=== PATIENT | male | born 1965 | race Caucasian/White ===

== ENCOUNTER 2020-12-02 00:04 | Inpatient (IN) | payer MEDICARE, MEDICAID ==
[~2020-12-02] VITALS: Ht 175.3 cm; Wt 80.5 kg
--- NOTE | 2020-12-02 00:20 | NUR ---
PT ARRIVED VIA [facility] TO ROOM 39. PT A&OX4, IN RESPIRATORY DISTRESS, AND REMAINS ON O2 NC 4LPM, AND FACEMASK O2 AT 15LPM FOR TRANSPORT, TRANSPORT DOES NOT HAVE HIFLO SYSTEM. PT CALM AND COOPERATIVE, AND ADMITTED TO ER. PLACED ON CR MONITOR, AND RT TO BEDSIDE TO START HIFLO O2 VIA NC AT 55L AND 100%. PT HAVING TACHYPNEA BUT SAYS HE FEELS ALRIGHT AND COMFORTABLE.
--- NOTE | 2020-12-02 00:21 | NUR ---
PT HAS PIV BILATERAL TO AC'S. BOTH 18G AND FLUSHED EASILY, AND NO REDNESS OR SWELLING NOTED. MD TO SEE PT, AND ALL PAPERWORK TO PHYSICIAN.
--- NOTE | 2020-12-02 00:26 | NUR ---
PTS NISHANT CALLED FOR AN UPDATE TO PTS STATUS. PT GAVE PERMISSION TO GIVE UPDATE TO NISHANT AND TO HIS DAUGHTER WHO MAY ALSO CALL. MD TO BEDSIDE TO [facility].
--- NOTE | 2020-12-02 01:01 | NUR ---
PTS DAUGHTER, NIGEL, CALLED FOR AN UPDATE AND TO GIVE ANY MORE INFORMATION THAT WE MIGHT NEED IN REGARDS TO MEDICATIONS. PT IS AWARE AND GAVE PERMISSION TO GIVE THE INFORMATION TO THE DAUGHTER.
--- NOTE | 2020-12-02 01:12 | NUR ---
BEDSIDE REPORT FROM DANIEL RN
[2020-12-02] MEDS ORDERED: CLOP75TA PO (01:57)
[2020-12-02] MEDS ORDERED: MONT10TA17 PO (01:57)
[2020-12-02] MEDS ORDERED: ASPI81TA45 PO (01:57)
[2020-12-02] MEDS ORDERED: FLUT9.9S NS (01:57)
[2020-12-02] MEDS ORDERED: ACET325T14 PO (01:57)
[2020-12-02] MEDS ORDERED: CALC1TAB26 PO (01:57)
[2020-12-02] MEDS ORDERED: GABA300C PO (01:57)
[2020-12-02] MEDS ORDERED: MELA10TA PO (01:57)
[2020-12-02] MEDS ORDERED: TERA2CAP3 PO (01:57)
[2020-12-02] MEDS ORDERED: LEVO125T PO (01:57)
[2020-12-02] MEDS ORDERED: LISI40TA9 PO (01:57)
[2020-12-02] MEDS ORDERED: TRIA60LO9 TP (01:57)
--- NOTE | 2020-12-02 01:58 | NUR ---
[facility] AT BEDSIDE
--- NOTE | 2020-12-02 02:23 | NUR ---
REPORT GIVEN TO ANDREAS CAMERON ON CARD TELE.
[2020-12-02] MEDS ORDERED: CEFTRIAXONE 1,000 MG in DEXTROSE 5% 50 ML IVPB SCH (03:00)
[2020-12-02] MEDS ORDERED: ONDANSETRON 2MG/ML, 2ML IVPush PRN (03:00)
[2020-12-02] MEDS ORDERED: LABETALOL 5MG/ML, 20ML IVPush PRN (03:00)
[2020-12-02] MEDS ORDERED: ENOXAPARIN 30 MG/0.3 ML SQ SCH (03:00)
[2020-12-02 03:08] VITALS: BP 137/92
[2020-12-02] MEDS: ENOXAPARIN 30 MG/0.3 ML SQ SCH ×2 (06:03→17:40)
[2020-12-02 06:30] LABS: HCT (SEDRATE) 41.6 % (39.2-51.8)
[2020-12-02 06:54] LABS: FREE T4 (FREE THYROXINE) 1.34 ng/dL (0.76-1.46)
[2020-12-02 08:00] VITALS: BP 112/70
[2020-12-02] MEDS: CHOLECALCIFEROL 5,000u TAB PO SCH (08:36)
[2020-12-02] MEDS: THIAMINE 100MG TABLET PO SCH (08:36)
[2020-12-02] MEDS: DOXYCYCLINE 100MG TABLET PO SCH ×2 (08:36→21:07)
[2020-12-02] MEDS: DEXAMETHASONE 4 MG/ML, 1ML IVPush SCH (08:36)
[2020-12-02] MEDS: ASCORBIC ACID 500 MG TABLET PO SCH ×2 (08:36→17:40)
[2020-12-02] MEDS ORDERED: CEFTRIAXONE 1,000 MG in DEXTROSE 5% 50 ML IVPB ONE (09:00)
[2020-12-02] MEDS: ASPIRIN 81 MG TABLET EC PO SCH (09:00)
[2020-12-02 09:57] VITALS: BP 113/72
[2020-12-02 13:29] VITALS: BP 126/78
[2020-12-02 15:08] LABS: ALANINE AMINOTRANSFERASE 20 U/L (12-78); ALBUMIN 2.1 g/dL (3.4-5.0); ANION GAP 7 mmol/L (5-15); CALCIUM 8.4 mg/dL (8.5-10.1); CHLORIDE 112 mmol/L (98-107)
[2020-12-02 15:10] LABS: ALKALINE PHOSPHATASE 50 U/L (45-117); BILIRUBIN,TOTAL 0.7 mg/dL (0.2-1.0); CREATININE 0.85 mg/dL (0.7-1.3); TOTAL PROTEIN 7.1 g/dL (6.4-8.2)
[2020-12-02] MEDS: ZINC SULFATE 220 MG CAPSULE PO SCH (15:20)
[2020-12-02] MEDS: LISINOPRIL 40 MG TABLET PO SCH (15:20)
[2020-12-02] MEDS: LEVOTHYROXINE 125 MCG TABLET PO SCH (15:20)
[2020-12-02] MEDS ORDERED: REMDESIVIR 200 MG in SODIUM CHLORIDE 0.9% 250 ML IVPB ONE (16:00)
[2020-12-02 20:01] VITALS: BP 99/64
[2020-12-03 02:47] VITALS: BP 117/72
[2020-12-03 05:40] LABS: BASOPHILS % (AUTO) 1 % (0-1); EOSINOPHILS % (AUTO) 0 % (1-7); LYMPHOCYTES % (AUTO) 4 % (22-44); MEAN CORPUSCULAR HEMOGLOBIN 30.5 pg (27.5-34.5); MEAN CORPUSCULAR HGB CONC 33.8 g/dL (33.2-36.2); MONOCYTES % (AUTO) 6 % (2-9); NEUTROPHILS % (AUTO) 90 % (42-75); PLATELET COUNT 563 x10^3/uL (130-400); RED BLOOD COUNT 4.57 x10^6/uL (4.38-5.82); RED CELL DISTRIBUTION WIDTH 13.4 % (9.4-14.8)
[2020-12-03 05:46] LABS: ALBUMIN 1.9 g/dL (3.4-5.0); ANION GAP 7 mmol/L (5-15); CALCIUM 8.4 mg/dL (8.5-10.1); CHLORIDE 115 mmol/L (98-107)
[2020-12-03 05:49] LABS: ALANINE AMINOTRANSFERASE 24 U/L (12-78); ALKALINE PHOSPHATASE 47 U/L (45-117); BILIRUBIN,TOTAL 0.6 mg/dL (0.2-1.0); CREATININE 0.79 mg/dL (0.7-1.3); TOTAL PROTEIN 6.4 g/dL (6.4-8.2)
[2020-12-03] MEDS: CEFTRIAXONE 2,000 MG in DEXTROSE 5% 50 ML IVPB SCH (06:01)
[2020-12-03] MEDS: ENOXAPARIN 30 MG/0.3 ML SQ SCH ×2 (06:02→17:55)
[2020-12-03] MEDS: LEVOTHYROXINE 125 MCG TABLET PO SCH (06:07)
[2020-12-03 08:45] VITALS: BP 137/84
[2020-12-03] MEDS: ZINC SULFATE 220 MG CAPSULE PO SCH (09:00)
[2020-12-03] MEDS: THIAMINE 100MG TABLET PO SCH (09:51)
[2020-12-03] MEDS: DEXAMETHASONE 4 MG/ML, 1ML IVPush SCH (09:51)
[2020-12-03] MEDS: ASPIRIN 81 MG TABLET EC PO SCH (09:51)
[2020-12-03] MEDS: CHOLECALCIFEROL 5,000u TAB PO SCH (09:51)
[2020-12-03] MEDS: DOXYCYCLINE 100MG TABLET PO SCH ×2 (09:51→21:26)
[2020-12-03] MEDS: CLOPIDOGREL 75 MG TABLET PO SCH (09:52)
[2020-12-03] MEDS: ASCORBIC ACID 500 MG TABLET PO SCH ×2 (09:52→17:55)
[2020-12-03] MEDS: LISINOPRIL 40 MG TABLET PO SCH (09:52)
[2020-12-03 14:10] VITALS: BP 128/77
[2020-12-03] MEDS: REMDESIVIR 100 MG in SODIUM CHLORIDE 0.9% 250 ML IVPB SCH (16:01)
[2020-12-03 19:53] VITALS: BP 148/83
[2020-12-03] MEDS: GUAIFENESIN ER 600 MG TABLET PO SCH (21:26)
[2020-12-03] MEDS: ACETAMINOPHEN 325 MG TABLET PO PRN (21:40)
[2020-12-04 02:09] VITALS: BP 146/87
[2020-12-04] MEDS: LEVOTHYROXINE 125 MCG TABLET PO SCH (05:32)
[2020-12-04] MEDS: ENOXAPARIN 30 MG/0.3 ML SQ SCH (05:33)
[2020-12-04 05:46] LABS: BASOPHILS % (AUTO) 0 % (0-1); EOSINOPHILS % (AUTO) 0 % (1-7); LYMPHOCYTES % (AUTO) 6 % (22-44); MEAN CORPUSCULAR HEMOGLOBIN 30.8 pg (27.5-34.5); MEAN CORPUSCULAR HGB CONC 33.9 g/dL (33.2-36.2); MEAN PLATELET VOLUME 7.9 fL (7.4-10.4); MONOCYTES % (AUTO) 4 % (2-9); NEUTROPHILS % (AUTO) 90 % (42-75); PLATELET COUNT 596 x10^3/uL (130-400); RED BLOOD COUNT 4.74 x10^6/uL (4.38-5.82); RED CELL DISTRIBUTION WIDTH 13.3 % (9.4-14.8)
[2020-12-04 05:57] LABS: ANION GAP 6 mmol/L (5-15); CALCIUM 8.6 mg/dL (8.5-10.1); CHLORIDE 116 mmol/L (98-107)
[2020-12-04 06:02] LABS: ALANINE AMINOTRANSFERASE 24 U/L (12-78); ALKALINE PHOSPHATASE 50 U/L (45-117); BILIRUBIN,TOTAL 0.8 mg/dL (0.2-1.0); CREATININE 0.71 mg/dL (0.7-1.3); TOTAL PROTEIN 6.5 g/dL (6.4-8.2)
[2020-12-04] MEDS: ASPIRIN 81 MG TABLET EC PO SCH (08:48)
[2020-12-04] MEDS: ASCORBIC ACID 500 MG TABLET PO SCH ×2 (08:48→17:02)
[2020-12-04] MEDS: DEXAMETHASONE 4 MG/ML, 1ML IVPush SCH (08:49)
[2020-12-04] MEDS: CHOLECALCIFEROL 5,000u TAB PO SCH (08:49)
[2020-12-04] MEDS: THIAMINE 100MG TABLET PO SCH (08:49)
[2020-12-04] MEDS: GUAIFENESIN ER 600 MG TABLET PO SCH ×2 (08:49→20:58)
[2020-12-04] MEDS: ZINC SULFATE 220 MG CAPSULE PO SCH (08:49)
[2020-12-04] MEDS: CLOPIDOGREL 75 MG TABLET PO SCH (08:49)
[2020-12-04] MEDS: DOXYCYCLINE 100MG TABLET PO SCH ×2 (08:49→20:58)
[2020-12-04] MEDS: LISINOPRIL 40 MG TABLET PO SCH (08:53)
[2020-12-04 09:15] VITALS: BP 159/91
[2020-12-04] MEDS ORDERED: ENOXAPARIN 60 MG/0.6 ML SQ ONE (09:30)
[2020-12-04] MEDS ORDERED: POTASSIUM CHLORIDE 20 MEQ TAB.ER.PRT PO ONE (09:30)
[2020-12-04] MEDS: POTASSIUM CHLORIDE 20 MEQ TAB.ER.PRT PO SCH ×2 (12:00→17:02)
[2020-12-04] MEDS: FUROSEMIDE 40 MG/4 ML IV SCH ×2 (12:18→17:02)
[2020-12-04 13:09] VITALS: BP 134/82
[2020-12-04] MEDS: REMDESIVIR 100 MG in SODIUM CHLORIDE 0.9% 250 ML IVPB SCH (17:01)
[2020-12-04] MEDS: ACETAMINOPHEN 325 MG TABLET PO PRN ×2 (18:00→21:59)
[2020-12-04 19:01] VITALS: BP 117/74
[2020-12-04] MEDS: ENOXAPARIN 100 MG/ML SQ SCH (20:58)
[2020-12-05 00:31] VITALS: BP 121/77
[2020-12-05] MEDS: ACETAMINOPHEN 325 MG TABLET PO PRN ×5 (01:54→21:00)
[2020-12-05 05:34] LABS: ALBUMIN 2.2 g/dL (3.4-5.0); ANION GAP 10 mmol/L (5-15); CALCIUM 8.7 mg/dL (8.5-10.1); CHLORIDE 109 mmol/L (98-107)
[2020-12-05 05:38] LABS: ALANINE AMINOTRANSFERASE 25 U/L (12-78); ALKALINE PHOSPHATASE 53 U/L (45-117); BILIRUBIN,TOTAL 1.1 mg/dL (0.2-1.0); CREATININE 1.03 mg/dL (0.7-1.3); TOTAL PROTEIN 7.2 g/dL (6.4-8.2)
[2020-12-05] MEDS: LEVOTHYROXINE 125 MCG TABLET PO SCH (06:00)
[2020-12-05] MEDS: FUROSEMIDE 40 MG/4 ML IV SCH ×2 (06:22→16:58)
[2020-12-05 09:01] VITALS: BP 95/62
[2020-12-05] MEDS: GUAIFENESIN ER 600 MG TABLET PO SCH ×2 (09:11→21:00)
[2020-12-05] MEDS: DEXAMETHASONE 4 MG/ML, 1ML IVPush SCH ×2 (09:11→21:01)
[2020-12-05] MEDS: ASPIRIN 81 MG TABLET EC PO SCH (09:11)
[2020-12-05] MEDS: DOXYCYCLINE 100MG TABLET PO SCH ×2 (09:11→21:01)
[2020-12-05] MEDS: ASCORBIC ACID 500 MG TABLET PO SCH ×2 (09:12→16:58)
[2020-12-05] MEDS: CLOPIDOGREL 75 MG TABLET PO SCH (09:12)
[2020-12-05] MEDS: ENOXAPARIN 100 MG/ML SQ SCH ×2 (09:12→21:01)
[2020-12-05] MEDS: LISINOPRIL 40 MG TABLET PO SCH (09:12)
[2020-12-05] MEDS: CHOLECALCIFEROL 5,000u TAB PO SCH (09:12)
[2020-12-05] MEDS: THIAMINE 100MG TABLET PO SCH (09:12)
[2020-12-05] MEDS: POTASSIUM CHLORIDE 20 MEQ TAB.ER.PRT PO SCH ×3 (09:12→16:58)
[2020-12-05] MEDS: ZINC SULFATE 220 MG CAPSULE PO SCH (12:27)
[2020-12-05 13:22] VITALS: BP 113/74
[2020-12-05] MEDS: REMDESIVIR 100 MG in SODIUM CHLORIDE 0.9% 250 ML IVPB SCH (16:57)
[2020-12-05 18:27] VITALS: BP 96/61
[2020-12-05 23:16] VITALS: BP 107/70
[2020-12-06] MEDS: CEFTRIAXONE 2,000 MG in DEXTROSE 5% 50 ML IVPB SCH (06:07)
[2020-12-06] MEDS: ACETAMINOPHEN 325 MG TABLET PO PRN ×4 (06:07→20:07)
[2020-12-06] MEDS: FUROSEMIDE 40 MG/4 ML IV SCH ×2 (06:07→16:33)
[2020-12-06] MEDS: LEVOTHYROXINE 125 MCG TABLET PO SCH (06:08)
[2020-12-06 06:19] LABS: BASOPHILS % (AUTO) 0 % (0-1); EOSINOPHILS % (AUTO) 0 % (1-7); LYMPHOCYTES % (AUTO) 4 % (22-44); MEAN CORPUSCULAR HEMOGLOBIN 31.2 pg (27.5-34.5); MEAN CORPUSCULAR HGB CONC 34.2 g/dL (33.2-36.2); MEAN PLATELET VOLUME 8.1 fL (7.4-10.4); MONOCYTES % (AUTO) 2 % (2-9); NEUTROPHILS % (AUTO) 94 % (42-75); PLATELET COUNT 731 x10^3/uL (130-400); RED BLOOD COUNT 4.86 x10^6/uL (4.38-5.82); RED CELL DISTRIBUTION WIDTH 13.5 % (9.4-14.8)
[2020-12-06 06:28] LABS: CHLORIDE 109 mmol/L (98-107)
[2020-12-06 06:32] LABS: ANION GAP 8 mmol/L (5-15); CREATININE 0.86 mg/dL (0.7-1.3)
[2020-12-06 07:44] VITALS: BP 91/59
[2020-12-06] MEDS: LISINOPRIL 40 MG TABLET PO SCH (09:00)
[2020-12-06] MEDS: ENOXAPARIN 100 MG/ML SQ SCH ×2 (09:00→20:07)
[2020-12-06] MEDS: POTASSIUM CHLORIDE 20 MEQ TAB.ER.PRT PO SCH ×3 (09:18→16:33)
[2020-12-06] MEDS: ASPIRIN 81 MG TABLET EC PO SCH (09:19)
[2020-12-06] MEDS: CLOPIDOGREL 75 MG TABLET PO SCH (09:19)
[2020-12-06] MEDS: GUAIFENESIN ER 600 MG TABLET PO SCH ×2 (09:19→20:07)
[2020-12-06] MEDS: THIAMINE 100MG TABLET PO SCH (09:19)
[2020-12-06] MEDS: ASCORBIC ACID 500 MG TABLET PO SCH ×2 (09:19→16:33)
[2020-12-06] MEDS: CHOLECALCIFEROL 5,000u TAB PO SCH (09:19)
[2020-12-06] MEDS: DEXAMETHASONE 4 MG/ML, 1ML IVPush SCH ×2 (09:20→20:07)
[2020-12-06] MEDS: DOXYCYCLINE 100MG TABLET PO SCH ×2 (09:25→20:07)
[2020-12-06 10:20] LABS: CHLORIDE 108 mmol/L (98-107)
[2020-12-06 10:26] LABS: ALANINE AMINOTRANSFERASE 22 U/L (12-78); ALBUMIN 2.2 g/dL (3.4-5.0); ALKALINE PHOSPHATASE 49 U/L (45-117); ANION GAP 10 mmol/L (5-15); BILIRUBIN,TOTAL 0.4 mg/dL (0.2-1.0); CALCIUM 9.4 mg/dL (8.5-10.1); CREATININE 0.98 mg/dL (0.7-1.3); TOTAL PROTEIN 7.2 g/dL (6.4-8.2)
[2020-12-06] MEDS: ZINC SULFATE 220 MG CAPSULE PO SCH (11:15)
[2020-12-06 13:02] VITALS: BP 111/74
[2020-12-06] MEDS ORDERED: ASCORBIC ACID 250 MG TAB ONE (16:15)
[2020-12-06 16:30] VITALS: BP 103/66
[2020-12-06] MEDS: REMDESIVIR 100 MG in SODIUM CHLORIDE 0.9% 250 ML IVPB SCH (16:33)
[2020-12-06 19:05] VITALS: BP 99/52
[2020-12-07 00:16] VITALS: BP 98/55
[2020-12-07] MEDS: ACETAMINOPHEN 325 MG TABLET PO PRN ×4 (00:38→20:00)
[2020-12-07 04:51] LABS: BASOPHILS % (AUTO) 1 % (0-1); EOSINOPHILS % (AUTO) 0 % (1-7); LYMPHOCYTES % (AUTO) 4 % (22-44); MEAN CORPUSCULAR HEMOGLOBIN 30.1 pg (27.5-34.5); MEAN PLATELET VOLUME 8.1 fL (7.4-10.4); MONOCYTES % (AUTO) 1 % (2-9); NEUTROPHILS % (AUTO) 95 % (42-75); PLATELET COUNT 777 x10^3/uL (130-400); RED BLOOD COUNT 5.07 x10^6/uL (4.38-5.82); RED CELL DISTRIBUTION WIDTH 13.6 % (9.4-14.8)
[2020-12-07 05:00] LABS: ANION GAP 9 mmol/L (5-15); CALCIUM 9.2 mg/dL (8.5-10.1); CHLORIDE 108 mmol/L (98-107)
[2020-12-07 05:01] LABS: CREATININE 0.89 mg/dL (0.7-1.3)
[2020-12-07] MEDS: LEVOTHYROXINE 125 MCG TABLET PO SCH (05:55)
[2020-12-07] MEDS: CEFTRIAXONE 2,000 MG in DEXTROSE 5% 50 ML IVPB SCH (05:56)
[2020-12-07 07:35] VITALS: BP 109/61
[2020-12-07] MEDS: FUROSEMIDE 40 MG/4 ML IV SCH ×2 (08:49→18:08)
[2020-12-07] MEDS: DEXAMETHASONE 4 MG/ML, 1ML IVPush SCH ×2 (08:50→20:00)
[2020-12-07] MEDS: ENOXAPARIN 100 MG/ML SQ SCH (08:50)
[2020-12-07] MEDS: DOXYCYCLINE 100MG TABLET PO SCH ×2 (08:51→19:59)
[2020-12-07] MEDS: ASPIRIN 81 MG TABLET EC PO SCH (08:51)
[2020-12-07] MEDS: ASCORBIC ACID 500 MG TABLET PO SCH ×2 (08:51→18:08)
[2020-12-07] MEDS: THIAMINE 100MG TABLET PO SCH (08:51)
[2020-12-07] MEDS: CHOLECALCIFEROL 5,000u TAB PO SCH (08:51)
[2020-12-07] MEDS: LISINOPRIL 40 MG TABLET PO SCH (08:51)
[2020-12-07] MEDS: POTASSIUM CHLORIDE 20 MEQ TAB.ER.PRT PO SCH ×3 (08:51→18:08)
[2020-12-07] MEDS: CLOPIDOGREL 75 MG TABLET PO SCH (08:52)
[2020-12-07] MEDS: ZINC SULFATE 220 MG CAPSULE PO SCH (11:37)
[2020-12-07] MEDS: GUAIFENESIN ER 600 MG TABLET PO SCH ×2 (11:37→20:00)
[2020-12-07 12:21] VITALS: BP 104/60
[2020-12-07] MEDS: ENOXAPARIN 80 MG/0.8 ML SQ SCH (20:00)
[2020-12-07 20:03] VITALS: BP 97/52
[2020-12-08] MEDS: ACETAMINOPHEN 325 MG TABLET PO PRN ×3 (01:41→17:35)
[2020-12-08 01:43] VITALS: BP 108/66
[2020-12-08] MEDS: CEFTRIAXONE 2,000 MG in DEXTROSE 5% 50 ML IVPB SCH (06:11)
[2020-12-08] MEDS: LEVOTHYROXINE 125 MCG TABLET PO SCH (06:11)
[2020-12-08 08:00] VITALS: BP 110/67
[2020-12-08] MEDS: THIAMINE 100MG TABLET PO SCH (08:50)
[2020-12-08] MEDS: ENOXAPARIN 80 MG/0.8 ML SQ SCH ×2 (08:50→20:24)
[2020-12-08] MEDS: DOXYCYCLINE 100MG TABLET PO SCH ×2 (08:50→20:24)
[2020-12-08] MEDS: ASPIRIN 81 MG TABLET EC PO SCH (08:51)
[2020-12-08] MEDS: CLOPIDOGREL 75 MG TABLET PO SCH (08:51)
[2020-12-08] MEDS: FUROSEMIDE 40 MG/4 ML IV SCH ×2 (08:51→17:02)
[2020-12-08] MEDS: DEXAMETHASONE 4 MG/ML, 1ML IVPush SCH ×2 (08:51→20:24)
[2020-12-08] MEDS: CHOLECALCIFEROL 5,000u TAB PO SCH (08:51)
[2020-12-08] MEDS: ASCORBIC ACID 500 MG TABLET PO SCH ×2 (08:51→17:02)
[2020-12-08] MEDS: POTASSIUM CHLORIDE 20 MEQ TAB.ER.PRT PO SCH ×3 (08:51→17:02)
[2020-12-08] MEDS: LISINOPRIL 40 MG TABLET PO SCH (08:51)
[2020-12-08] MEDS: GUAIFENESIN ER 600 MG TABLET PO SCH ×2 (08:51→20:24)
[2020-12-08] MEDS: ZINC SULFATE 220 MG CAPSULE PO SCH (11:49)
[2020-12-08 14:00] VITALS: BP 101/57
[2020-12-08 15:06] LABS: TROPONIN I < 0.015 ng/mL (0.000-0.045)
[2020-12-08] MEDS ORDERED: FUROSEMIDE 20 MG/2 ML ONE (16:48)
[2020-12-08 20:00] VITALS: BP 95/56
[2020-12-08 20:31] LABS: TROPONIN I < 0.015 ng/mL (0.000-0.045)
[2020-12-08] MEDS: MELATONIN 5 MG TABLET PO SCH (23:45)
[2020-12-09] VITALS (8 sets, daily range): BP systolic 82–111; BP diastolic 46–67
[2020-12-09 04:51] LABS: BASOPHILS % (AUTO) 0 % (0-1); EOSINOPHILS % (AUTO) 0 % (1-7); LYMPHOCYTES % (AUTO) 2 % (22-44); MEAN CORPUSCULAR HEMOGLOBIN 30.6 pg (27.5-34.5); MEAN CORPUSCULAR HGB CONC 33.4 g/dL (33.2-36.2); MEAN PLATELET VOLUME 8.1 fL (7.4-10.4); MONOCYTES % (AUTO) 2 % (2-9); NEUTROPHILS % (AUTO) 96 % (42-75); PLATELET COUNT 782 x10^3/uL (130-400); RED BLOOD COUNT 5.22 x10^6/uL (4.38-5.82); RED CELL DISTRIBUTION WIDTH 13.6 % (9.4-14.8)
[2020-12-09 04:59] LABS: ANION GAP 10 mmol/L (5-15); CALCIUM 9.3 mg/dL (8.5-10.1); CHLORIDE 108 mmol/L (98-107)
[2020-12-09 05:02] LABS: CREATININE 1.01 mg/dL (0.7-1.3)
[2020-12-09] MEDS: CEFTRIAXONE 2,000 MG in DEXTROSE 5% 50 ML IVPB SCH (05:07)
[2020-12-09] MEDS: LEVOTHYROXINE 125 MCG TABLET PO SCH (05:10)
[2020-12-09] MEDS: FUROSEMIDE 40 MG/4 ML IV SCH ×2 (08:09→17:51)
[2020-12-09] MEDS: DEXAMETHASONE 4 MG/ML, 1ML IVPush SCH ×2 (08:09→22:01)
[2020-12-09] MEDS: CHOLECALCIFEROL 5,000u TAB PO SCH (08:10)
[2020-12-09] MEDS: ASCORBIC ACID 500 MG TABLET PO SCH ×2 (08:10→17:51)
[2020-12-09] MEDS: CLOPIDOGREL 75 MG TABLET PO SCH (08:10)
[2020-12-09] MEDS: ASPIRIN 81 MG TABLET EC PO SCH (08:11)
[2020-12-09] MEDS: POTASSIUM CHLORIDE 20 MEQ TAB.ER.PRT PO SCH ×3 (08:11→17:51)
[2020-12-09] MEDS: ACETAMINOPHEN 325 MG TABLET PO PRN ×2 (08:12→18:40)
[2020-12-09] MEDS: ENOXAPARIN 80 MG/0.8 ML SQ SCH ×2 (08:13→22:01)
[2020-12-09] MEDS: GUAIFENESIN ER 600 MG TABLET PO SCH ×2 (08:13→22:02)
[2020-12-09] MEDS: THIAMINE 100MG TABLET PO SCH (08:13)
[2020-12-09] MEDS: DOXYCYCLINE 100MG TABLET PO SCH ×2 (08:13→22:02)
[2020-12-09] MEDS: LISINOPRIL 40 MG TABLET PO SCH (08:14)
[2020-12-09] MEDS: ZINC SULFATE 220 MG CAPSULE PO SCH (12:44)
[2020-12-09] MEDS: MELATONIN 5 MG TABLET PO SCH (21:00)
[2020-12-10] VITALS (7 sets, daily range): BP systolic 83–113; BP diastolic 42–72
[2020-12-10] MEDS: LEVOTHYROXINE 125 MCG TABLET PO SCH (06:00)
[2020-12-10] MEDS: CEFTRIAXONE 2,000 MG in DEXTROSE 5% 50 ML IVPB SCH (06:14)
[2020-12-10] MEDS: ACETAMINOPHEN 325 MG TABLET PO PRN ×2 (06:15→16:15)
[2020-12-10] MEDS: GUAIFENESIN ER 600 MG TABLET PO SCH ×2 (08:36→20:14)
[2020-12-10] MEDS: CHOLECALCIFEROL 5,000u TAB PO SCH (08:36)
[2020-12-10] MEDS: CLOPIDOGREL 75 MG TABLET PO SCH (08:36)
[2020-12-10] MEDS: FUROSEMIDE 40 MG/4 ML IV SCH ×2 (08:36→17:29)
[2020-12-10] MEDS: DEXAMETHASONE 4 MG/ML, 1ML IVPush SCH ×2 (08:36→20:14)
[2020-12-10] MEDS: ENOXAPARIN 80 MG/0.8 ML SQ SCH (08:37)
[2020-12-10] MEDS: THIAMINE 100MG TABLET PO SCH (08:37)
[2020-12-10] MEDS: ASPIRIN 81 MG TABLET EC PO SCH (08:37)
[2020-12-10] MEDS: POTASSIUM CHLORIDE 20 MEQ TAB.ER.PRT PO SCH ×3 (08:37→17:28)
[2020-12-10] MEDS: DOXYCYCLINE 100MG TABLET PO SCH ×2 (08:37→20:15)
[2020-12-10] MEDS: ASCORBIC ACID 500 MG TABLET PO SCH ×2 (08:37→17:28)
[2020-12-10] MEDS: LISINOPRIL 40 MG TABLET PO SCH (08:51)
[2020-12-10] MEDS: ZINC SULFATE 220 MG CAPSULE PO SCH (11:01)
[2020-12-10] MEDS: MELATONIN 5 MG TABLET PO SCH (20:15)
[2020-12-10] MEDS: GABAPENTIN 300 MG CAPSULE PO PRN (20:16)
[2020-12-11] VITALS (27 sets, daily range): BP systolic 66–120; BP diastolic 42–89
[2020-12-11] MEDS: LEVOTHYROXINE 125 MCG TABLET PO SCH (06:24)
[2020-12-11] MEDS: CEFTRIAXONE 2,000 MG in DEXTROSE 5% 50 ML IVPB SCH (06:24)
[2020-12-11] MEDS: FUROSEMIDE 40 MG/4 ML IV SCH (06:26)
[2020-12-11] MEDS: GABAPENTIN 300 MG CAPSULE PO PRN (06:26)
[2020-12-11] MEDS: POTASSIUM CHLORIDE 20 MEQ TAB.ER.PRT PO SCH ×3 (06:29→17:17)
[2020-12-11] MEDS: ASCORBIC ACID 500 MG TABLET PO SCH ×2 (06:29→17:17)
[2020-12-11] MEDS: DEXAMETHASONE 4 MG/ML, 1ML IVPush SCH (08:41)
[2020-12-11] MEDS: THIAMINE 100MG TABLET PO SCH (08:42)
[2020-12-11] MEDS: CLOPIDOGREL 75 MG TABLET PO SCH (08:42)
[2020-12-11] MEDS: LISINOPRIL 40 MG TABLET PO SCH (08:42)
[2020-12-11] MEDS: DOXYCYCLINE 100MG TABLET PO SCH (08:42)
[2020-12-11] MEDS: GUAIFENESIN ER 600 MG TABLET PO SCH (08:42)
[2020-12-11] MEDS: ASPIRIN 81 MG TABLET EC PO SCH (08:42)
[2020-12-11] MEDS: CHOLECALCIFEROL 5,000u TAB PO SCH (08:42)
[2020-12-11] MEDS ORDERED: ENOXAPARIN 40 MG/0.4 ML SQ SCH (09:00)
[2020-12-11] MEDS ORDERED: PROPOFOL 100 ML IV PRN (11:10)
[2020-12-11] MEDS: PROPOFOL 100 ML IV PRN ×3 (11:10→21:51)
[2020-12-11] MEDS ORDERED: SODIUM CHLORIDE 0.9% 1,000ML IVBOLUS ONE (11:10)
[2020-12-11] MEDS ORDERED: PHARMACY MAY ADJ FOR RENAL FX MC SCH (11:30)
[2020-12-11] MEDS ORDERED: LIDOCAINE-MPF 1%, 2ML ENDO PRN (11:30)
[2020-12-11] MEDS: ZINC SULFATE 220 MG CAPSULE PO SCH (12:47)
[2020-12-11] MEDS ORDERED: OMNIPAQUE 350 MG/ML, 100ML BOTTLE ONE (14:01)
[2020-12-11] MEDS ORDERED: ENOXAPARIN 80 MG/0.8 ML SQ SCH (15:00)
[2020-12-11] MEDS: FENTANYL PF 100 MCG/2ML IVPush PRN ×3 (19:48→22:25)
[2020-12-11] MEDS: MELATONIN 5 MG TABLET PO SCH (19:49)
[2020-12-11] MEDS: NOREPINEPHRINE 8 MG in SODIUM CHLORIDE 0.9% 242 ML IV PRN (20:11)
[2020-12-11] MEDS ORDERED: MIDAZOLAM 1 MG/ML, 5ML ONE (20:20)
[2020-12-11] MEDS ORDERED: ETOMIDATE 20 MG/10 ML ONE (20:20)
[2020-12-11] MEDS ORDERED: PROPOFOL 10 MG/ML, 100ML IV ONE (20:20)
[2020-12-11] MEDS: GUAIFENESIN 100 MG/5 ML, 10ML UDC PO SCH (21:51)
[2020-12-11 22:43] LABS: INTERNATIONAL NORMALIZED RATIO 1.02 (0.93-1.1); PROTHROMBIN TIME 10.9 Seconds (9.6-11.5)
[2020-12-11] MEDS ORDERED: FENTANYL PF 1,000 MCG in SODIUM CHLORIDE 0.9% 80 ML IV PRN (23:00)
[2020-12-11] MEDS ORDERED: MIDAZOLAM 1 MG/ML, 2ML IVPush PRN (23:00)
[2020-12-11] MEDS: DOXYCYCLINE 100 MG in DEXTROSE 5% 250 ML IV SCH (23:09)
[2020-12-12] MEDS: GUAIFENESIN 100 MG/5 ML, 10ML UDC PO SCH ×6 (00:42→20:39)
[2020-12-12] MEDS: PROPOFOL 100 ML IV PRN (01:54)
[2020-12-12] MEDS: MIDAZOLAM HCL 50 MG in SODIUM CHLORIDE 0.9% 40 ML IV PRN ×3 (02:15→20:39)
[2020-12-12] MEDS: NOREPINEPHRINE 8 MG in SODIUM CHLORIDE 0.9% 242 ML IV PRN (02:15)
[2020-12-12] MEDS: FENTANYL PF 2,500 MCG in SODIUM CHLORIDE 0.9% 200 ML IV PRN (04:33)
[2020-12-12 05:10] LABS: MEAN CORPUSCULAR HEMOGLOBIN 30.2 pg (27.5-34.5); MEAN PLATELET VOLUME 8.7 fL (7.4-10.4); PLATELET COUNT 749 x10^3/uL (130-400); RED BLOOD COUNT 4.91 x10^6/uL (4.38-5.82); RED CELL DISTRIBUTION WIDTH 13.7 % (9.4-14.8)
[2020-12-12 05:21] LABS: ANION GAP 8 mmol/L (5-15); CALCIUM 8.6 mg/dL (8.5-10.1); CHLORIDE 102 mmol/L (98-107)
[2020-12-12] MEDS: LEVOTHYROXINE 125 MCG TABLET PO SCH (05:28)
[2020-12-12] MEDS: CEFTRIAXONE 2,000 MG in DEXTROSE 5% 50 ML IVPB SCH (05:29)
[2020-12-12] MEDS: NOREPINEPHRINE 32 MG in SODIUM CHLORIDE 0.9% 242 ML IV PRN ×2 (05:29→13:56)
[2020-12-12 05:43] LABS: METAMYELOCYTES# (MANUAL) 0.32 x10^3/uL (0-0); METAMYELOCYTES% (MANUAL) 1 % (0-1); MONOS#(MANUAL) 2.23 x10^3/uL (0.3-2.7); MONOS% (MANUAL) 7 % (2-9); SEG#(MANUAL) 29.35 x10^3/uL (1.8-6.8); SEGS% (MANUAL) 92 % (42-75)
[2020-12-12 05:44] LABS: <PLATELET ESTIMATE> INCREASED; <PLT MORPHOLOGY> NORMAL PLT MORPH; <RBC MORPHOLOGY> NORMAL
[2020-12-12] MEDS ORDERED: SODIUM CHLORIDE 0.9% 1,000 ML IV SCH (07:00)
[2020-12-12] MEDS ORDERED: SODIUM ZIRCONIUM CYCLOSILICATE 10 GM PO ONE (07:00)
[2020-12-12] MEDS: ACETAMINOPHEN 325 MG TABLET PO PRN (08:05)
[2020-12-12] MEDS: THIAMINE 100MG TABLET PO SCH (08:05)
[2020-12-12] MEDS: CLOPIDOGREL 75 MG TABLET PO SCH (08:05)
[2020-12-12] MEDS: ASPIRIN 81 MG TABLET EC PO SCH (08:05)
[2020-12-12] MEDS: CHOLECALCIFEROL 5,000u TAB PO SCH (08:05)
[2020-12-12] MEDS: DEXAMETHASONE 4 MG/ML, 1ML IVPush SCH (08:05)
[2020-12-12] MEDS: ASCORBIC ACID 500 MG TABLET PO SCH (08:05)
[2020-12-12] MEDS: LISINOPRIL 40 MG TABLET PO SCH (08:06)
[2020-12-12] MEDS ORDERED: SODIUM CHLORIDE 0.9% 1,000ML IVBOLUS ONE (08:45)
[2020-12-12 10:46] LABS: ABSOLUTE RETICS # 0.072 x10^6/uL (0.5-1.5); RED BLOOD COUNT 4.81 x10^6/uL (4.38-5.82); RETICULOCYTE COUNT % 1.5 % (0.5-1.5)
[2020-12-12] MEDS: SODIUM BICARB 8.4%,50ML SYR. 75 MEQ in SODIUM CHLORIDE 0.45% 1,000 ML IV SCH ×2 (12:11→22:09)
[2020-12-12] MEDS: DOXYCYCLINE 100 MG in DEXTROSE 5% 250 ML IV SCH ×2 (12:12→23:58)
[2020-12-12] MEDS: PANTOPRAZOLE 40 MG IV IVPush SCH (12:14)
[2020-12-12] MEDS: MEROPENEM 1 GM in SODIUM CHLORIDE 0.9% 100 ML IV SCH ×2 (12:14→23:25)
[2020-12-12 14:33] LABS: POTASSIUM,URINE RANDOM 62 mmol/L; SODIUM,URINE RANDOM 8 mmol/L
[2020-12-12 14:34] LABS: CHLORIDE,URINE RANDOM < 10 mmol/L
[2020-12-12 15:43] LABS: MICROSCOPIC INDICATED
[2020-12-12] MEDS: MELATONIN 5 MG TABLET PO SCH (20:39)
[2020-12-13] MEDS: PANTOPRAZOLE 40 MG IV IVPush SCH ×3 (00:02→23:02)
[2020-12-13] MEDS: GUAIFENESIN 100 MG/5 ML, 10ML UDC PO SCH ×3 (01:09→08:25)
[2020-12-13] MEDS: NOREPINEPHRINE 32 MG in SODIUM CHLORIDE 0.9% 242 ML IV PRN (02:50)
[2020-12-13] MEDS: FENTANYL PF 2,500 MCG in SODIUM CHLORIDE 0.9% 200 ML IV PRN ×2 (04:07→18:05)
[2020-12-13 04:38] LABS: BASOPHILS % (AUTO) 0 % (0-1); EOSINOPHILS % (AUTO) 0 % (1-7); LYMPHOCYTES % (AUTO) 4 % (22-44); MEAN CORPUSCULAR HGB CONC 32.7 g/dL (33.2-36.2); MEAN PLATELET VOLUME 8.1 fL (7.4-10.4); MONOCYTES % (AUTO) 7 % (2-9); NEUTROPHILS % (AUTO) 89 % (42-75); PLATELET COUNT 563 x10^3/uL (130-400); RED BLOOD COUNT 4.32 x10^6/uL (4.38-5.82); RED CELL DISTRIBUTION WIDTH 13.4 % (9.4-14.8)
[2020-12-13 04:50] LABS: ALANINE AMINOTRANSFERASE 23 U/L (12-78); ALBUMIN 1.7 g/dL (3.4-5.0); ANION GAP 4 mmol/L (5-15); CALCIUM 8.3 mg/dL (8.5-10.1); CHLORIDE 108 mmol/L (98-107); CREATININE 1.18 mg/dL (0.7-1.3)
[2020-12-13 04:53] LABS: ALKALINE PHOSPHATASE 39 U/L (45-117); BILIRUBIN,TOTAL 0.6 mg/dL (0.2-1.0); TOTAL PROTEIN 5.5 g/dL (6.4-8.2)
[2020-12-13] MEDS: LEVOTHYROXINE 125 MCG TABLET PO SCH (05:43)
[2020-12-13] MEDS: ASPIRIN 81 MG TABLET EC PO SCH (08:25)
[2020-12-13] MEDS: DEXAMETHASONE 4 MG/ML, 1ML IVPush SCH (08:25)
[2020-12-13] MEDS: SODIUM BICARB 8.4%,50ML SYR. 75 MEQ in SODIUM CHLORIDE 0.45% 1,000 ML IV SCH (08:26)
[2020-12-13] MEDS ORDERED: GUAIFENESIN 100 MG/5 ML, 10ML UDC PO PRN (09:00)
[2020-12-13] MEDS: MIDAZOLAM HCL 50 MG in SODIUM CHLORIDE 0.9% 40 ML IV PRN ×2 (10:07→20:21)
[2020-12-13] MEDS: SODIUM CHLORIDE 0.9% 1,000 ML IV SCH (10:39)
[2020-12-13] MEDS: MEROPENEM 1 GM in SODIUM CHLORIDE 0.9% 100 ML IV SCH ×2 (10:40→17:58)
[2020-12-13] MEDS: DOXYCYCLINE 100 MG in DEXTROSE 5% 250 ML IV SCH ×2 (11:45→23:02)
[2020-12-13] MEDS ORDERED: LIDOCAINE 1%, 10ML ONE (16:09)
[2020-12-13] MEDS: NOREPINEPHRINE 32 MG in SODIUM CHLORIDE 0.9% 218 ML IV PRN (18:04)
[2020-12-13] MEDS: MELATONIN 5 MG TABLET PO SCH (23:02)
[2020-12-14] MEDS: SODIUM CHLORIDE 0.9% 1,000 ML IV SCH ×2 (01:38→17:49)
[2020-12-14] MEDS: MEROPENEM 1 GM in SODIUM CHLORIDE 0.9% 100 ML IV SCH ×3 (01:39→17:49)
[2020-12-14 04:55] LABS: BASOPHILS % (AUTO) 1 % (0-1); EOSINOPHILS % (AUTO) 0 % (1-7); LYMPHOCYTES % (AUTO) 5 % (22-44); MEAN CORPUSCULAR HEMOGLOBIN 30.5 pg (27.5-34.5); MEAN CORPUSCULAR HGB CONC 33.4 g/dL (33.2-36.2); MEAN PLATELET VOLUME 8.1 fL (7.4-10.4); MONOCYTES % (AUTO) 6 % (2-9); NEUTROPHILS % (AUTO) 88 % (42-75); PLATELET COUNT 409 x10^3/uL (130-400); RED BLOOD COUNT 3.74 x10^6/uL (4.38-5.82); RED CELL DISTRIBUTION WIDTH 13.2 % (9.4-14.8)
[2020-12-14 05:05] LABS: ALBUMIN 1.7 g/dL (3.4-5.0); ANION GAP 3 mmol/L (5-15); CHLORIDE 105 mmol/L (98-107)
[2020-12-14 05:11] LABS: ALANINE AMINOTRANSFERASE 18 U/L (12-78); ALKALINE PHOSPHATASE 32 U/L (45-117); BILIRUBIN,TOTAL 0.6 mg/dL (0.2-1.0); CALCIUM 8.3 mg/dL (8.5-10.1); CREATININE 0.67 mg/dL (0.7-1.3); TOTAL PROTEIN 5.3 g/dL (6.4-8.2); TRIGLYCERIDES 159 mg/dL (50-200)
[2020-12-14] MEDS: MIDAZOLAM HCL 50 MG in SODIUM CHLORIDE 0.9% 40 ML IV PRN ×2 (06:23→17:49)
[2020-12-14] MEDS: LEVOTHYROXINE 125 MCG TABLET PO SCH (06:24)
[2020-12-14] MEDS: ASPIRIN 81 MG TABLET EC PO SCH (07:33)
[2020-12-14] MEDS: DEXAMETHASONE 4 MG/ML, 1ML IVPush SCH (07:33)
[2020-12-14] MEDS: DOXYCYCLINE 100 MG in DEXTROSE 5% 250 ML IV SCH ×2 (11:16→22:46)
[2020-12-14] MEDS: PANTOPRAZOLE 40 MG IV IVPush SCH ×2 (11:16→22:47)
[2020-12-14] MEDS: ENOXAPARIN 60 MG/0.6 ML SQ SCH ×2 (11:17→22:46)
[2020-12-14] MEDS: FENTANYL PF 2,500 MCG in SODIUM CHLORIDE 0.9% 200 ML IV PRN (13:36)
--- NOTE | 2020-12-14 14:01 | NUR ---
Tube Feeds: Vital AF: goal: 60 ml/hr on propofol, 70 ml/hr off propofol Addendum: 12/14/20 at [address] Amended: Links added.
[2020-12-14] MEDS: MELATONIN 5 MG TABLET PO SCH (22:46)
[2020-12-15] MEDS: MEROPENEM 1 GM in SODIUM CHLORIDE 0.9% 100 ML IV SCH ×3 (02:10→18:09)
[2020-12-15 04:21] LABS: MEAN CORPUSCULAR HEMOGLOBIN 30.8 pg (27.5-34.5); MEAN CORPUSCULAR HGB CONC 33.6 g/dL (33.2-36.2); MEAN PLATELET VOLUME 7.8 fL (7.4-10.4); PLATELET COUNT 365 x10^3/uL (130-400); RED BLOOD COUNT 3.23 x10^6/uL (4.38-5.82); RED CELL DISTRIBUTION WIDTH 13.2 % (9.4-14.8)
[2020-12-15 04:33] LABS: ALANINE AMINOTRANSFERASE 17 U/L (12-78); ALBUMIN 1.5 g/dL (3.4-5.0); CALCIUM 8.1 mg/dL (8.5-10.1); CHLORIDE 105 mmol/L (98-107); CREATININE 0.54 mg/dL (0.7-1.3)
[2020-12-15 04:35] LABS: ALKALINE PHOSPHATASE 30 U/L (45-117); BILIRUBIN,TOTAL 0.3 mg/dL (0.2-1.0); TOTAL PROTEIN 4.7 g/dL (6.4-8.2)
[2020-12-15 05:16] LABS: ANION GAP 5 mmol/L (5-15)
[2020-12-15] MEDS: SODIUM CHLORIDE 0.9% 1,000 ML IV SCH ×2 (05:33→10:17)
[2020-12-15] MEDS: LEVOTHYROXINE 125 MCG TABLET PO SCH (05:34)
[2020-12-15 05:56] LABS: <PLATELET ESTIMATE> ADEQUATE; <PLT MORPHOLOGY> NORMAL PLT MORPH; <RBC MORPHOLOGY> NORMAL; LYMPH#(MANUAL) 0.78 x10^3/uL (1-3.4); LYMPHS% (MANUAL) 5 % (22-44); METAMYELOCYTES# (MANUAL) 0.16 x10^3/uL (0-0); METAMYELOCYTES% (MANUAL) 1 % (0-1); MONOS#(MANUAL) 0.47 x10^3/uL (0.3-2.7); MONOS% (MANUAL) 3 % (2-9); SEGS% (MANUAL) 91 % (42-75)
[2020-12-15] MEDS: MIDAZOLAM HCL 50 MG in SODIUM CHLORIDE 0.9% 40 ML IV PRN ×3 (06:06→19:23)
[2020-12-15] MEDS: SENNA 176 MG/5 ML ORAL SOL NG SCH (08:09)
[2020-12-15] MEDS: DEXAMETHASONE 4 MG/ML, 1ML IVPush SCH (08:09)
[2020-12-15] MEDS: ASPIRIN 81 MG TABLET EC PO SCH (08:09)
[2020-12-15 08:57] LABS: CHLORIDE,URINE RANDOM 90 mmol/L; POTASSIUM,URINE RANDOM 34 mmol/L; SODIUM,URINE RANDOM 83 mmol/L
[2020-12-15 09:02] LABS: CREATININE,URINE RANDOM 90.5 mg/dL
[2020-12-15 09:18] LABS: MICROSCOPIC NOT IND
[2020-12-15] MEDS ORDERED: ENOXAPARIN 60 MG/0.6 ML SQ SCH (09:30)
[2020-12-15] MEDS: POLYETHYLENE GLYCOL 17 GM PACKET PO SCH (10:35)
[2020-12-15] MEDS: PANTOPRAZOLE 40 MG IV IVPush SCH ×2 (11:09→22:53)
[2020-12-15] MEDS: DOXYCYCLINE 100 MG in DEXTROSE 5% 250 ML IV SCH ×2 (11:09→22:53)
[2020-12-15 14:26] LABS: BASOPHILS % (AUTO) 0 % (0-1); EOSINOPHILS % (AUTO) 0 % (1-7); LYMPHOCYTES % (AUTO) 5 % (22-44); MEAN CORPUSCULAR HEMOGLOBIN 30.5 pg (27.5-34.5); MEAN CORPUSCULAR HGB CONC 33.2 g/dL (33.2-36.2); MEAN PLATELET VOLUME 7.7 fL (7.4-10.4); MONOCYTES % (AUTO) 3 % (2-9); NEUTROPHILS % (AUTO) 92 % (42-75); PLATELET COUNT 368 x10^3/uL (130-400); RED BLOOD COUNT 3.07 x10^6/uL (4.38-5.82); RED CELL DISTRIBUTION WIDTH 13.2 % (9.4-14.8)
[2020-12-15] MEDS: FENTANYL PF 2,500 MCG in SODIUM CHLORIDE 0.9% 200 ML IV PRN (16:50)
[2020-12-15] MEDS: MELATONIN 5 MG TABLET PO SCH (22:53)
[2020-12-16] MEDS: MEROPENEM 1 GM in SODIUM CHLORIDE 0.9% 100 ML IV SCH ×3 (02:37→18:07)
[2020-12-16] MEDS: SODIUM CHLORIDE 0.9% 1,000 ML IV SCH (02:41)
[2020-12-16] MEDS: MIDAZOLAM HCL 50 MG in SODIUM CHLORIDE 0.9% 40 ML IV PRN ×3 (03:31→20:55)
[2020-12-16 05:52] LABS: BASOPHILS % (AUTO) 0 % (0-1); EOSINOPHILS % (AUTO) 1 % (1-7); LYMPHOCYTES % (AUTO) 11 % (22-44); MEAN CORPUSCULAR HEMOGLOBIN 30.7 pg (27.5-34.5); MEAN CORPUSCULAR HGB CONC 33.6 g/dL (33.2-36.2); MEAN PLATELET VOLUME 7.9 fL (7.4-10.4); MONOCYTES % (AUTO) 7 % (2-9); NEUTROPHILS % (AUTO) 82 % (42-75); PLATELET COUNT 388 x10^3/uL (130-400); RED BLOOD COUNT 3.19 x10^6/uL (4.38-5.82); RED CELL DISTRIBUTION WIDTH 13.3 % (9.4-14.8)
[2020-12-16 05:55] LABS: ANION GAP 3 mmol/L (5-15); CALCIUM 7.9 mg/dL (8.5-10.1); CHLORIDE 104 mmol/L (98-107); CREATININE 0.46 mg/dL (0.7-1.3)
[2020-12-16] MEDS: LEVOTHYROXINE 125 MCG TABLET PO SCH (05:55)
[2020-12-16] MEDS: DEXAMETHASONE 4 MG/ML, 1ML IVPush SCH (06:58)
[2020-12-16] MEDS: ENOXAPARIN 40 MG/0.4 ML SQ SCH (06:58)
[2020-12-16] MEDS: SENNA 176 MG/5 ML ORAL SOL NG SCH (06:59)
[2020-12-16] MEDS: POLYETHYLENE GLYCOL 17 GM PACKET PO SCH (06:59)
[2020-12-16] MEDS: FENTANYL PF 2,500 MCG in SODIUM CHLORIDE 0.9% 200 ML IV PRN (10:21)
[2020-12-16] MEDS: DOXYCYCLINE 100 MG in DEXTROSE 5% 250 ML IV SCH ×2 (10:32→23:31)
[2020-12-16] MEDS: PANTOPRAZOLE 40 MG IV IVPush SCH ×2 (10:53→23:30)
[2020-12-16] MEDS: MELATONIN 5 MG TABLET PO SCH (20:41)
[2020-12-17] MEDS: FENTANYL PF 2,500 MCG in SODIUM CHLORIDE 0.9% 200 ML IV PRN ×2 (01:54→17:43)
[2020-12-17] MEDS: MEROPENEM 1 GM in SODIUM CHLORIDE 0.9% 100 ML IV SCH ×3 (02:02→17:43)
[2020-12-17] MEDS: MIDAZOLAM HCL 50 MG in SODIUM CHLORIDE 0.9% 40 ML IV PRN ×3 (03:59→22:17)
[2020-12-17 04:41] LABS: BASOPHILS % (AUTO) 0 % (0-1); EOSINOPHILS % (AUTO) 1 % (1-7); LYMPHOCYTES % (AUTO) 13 % (22-44); MEAN CORPUSCULAR HEMOGLOBIN 30.8 pg (27.5-34.5); MEAN CORPUSCULAR HGB CONC 33.9 g/dL (33.2-36.2); MEAN PLATELET VOLUME 7.8 fL (7.4-10.4); MONOCYTES % (AUTO) 5 % (2-9); NEUTROPHILS % (AUTO) 81 % (42-75); PLATELET COUNT 409 x10^3/uL (130-400); RED BLOOD COUNT 3.46 x10^6/uL (4.38-5.82); RED CELL DISTRIBUTION WIDTH 13.5 % (9.4-14.8)
[2020-12-17 04:44] LABS: ANION GAP 4 mmol/L (5-15); CALCIUM 7.8 mg/dL (8.5-10.1); CHLORIDE 102 mmol/L (98-107)
[2020-12-17 04:47] LABS: CREATININE 0.49 mg/dL (0.7-1.3); TRIGLYCERIDES 132 mg/dL (50-200)
[2020-12-17] MEDS: ENOXAPARIN 40 MG/0.4 ML SQ SCH (06:15)
[2020-12-17] MEDS: LEVOTHYROXINE 125 MCG TABLET PO SCH (06:16)
[2020-12-17] MEDS: DEXAMETHASONE 4 MG/ML, 1ML IVPush SCH (08:45)
[2020-12-17] MEDS: POLYETHYLENE GLYCOL 17 GM PACKET PO SCH (08:45)
[2020-12-17] MEDS: SENNA 176 MG/5 ML ORAL SOL NG SCH (08:45)
[2020-12-17] MEDS ORDERED: METHYLNALTREXONE 12 MG/0.6 ML SYR SQ ONE (10:00)
[2020-12-17] MEDS: DOXYCYCLINE 100 MG in DEXTROSE 5% 250 ML IV SCH ×2 (11:43→23:52)
[2020-12-17] MEDS: PANTOPRAZOLE 40 MG IV IVPush SCH ×2 (11:44→23:52)
[2020-12-17] MEDS: MELATONIN 5 MG TABLET PO SCH (21:31)
[2020-12-18] MEDS: MEROPENEM 1 GM in SODIUM CHLORIDE 0.9% 100 ML IV SCH ×3 (03:00→18:28)
[2020-12-18] MEDS: FENTANYL PF 100 MCG/2ML IVPush PRN (04:02)
[2020-12-18 04:42] LABS: MEAN CORPUSCULAR HEMOGLOBIN 30.8 pg (27.5-34.5); MEAN CORPUSCULAR HGB CONC 33.8 g/dL (33.2-36.2); MEAN PLATELET VOLUME 7.5 fL (7.4-10.4); PLATELET COUNT 440 x10^3/uL (130-400); RED CELL DISTRIBUTION WIDTH 13.7 % (9.4-14.8)
[2020-12-18 04:53] LABS: ANION GAP 6 mmol/L (5-15); CALCIUM 7.9 mg/dL (8.5-10.1); CHLORIDE 100 mmol/L (98-107); CREATININE 0.43 mg/dL (0.7-1.3)
[2020-12-18] MEDS: MIDAZOLAM HCL 50 MG in SODIUM CHLORIDE 0.9% 40 ML IV PRN ×2 (05:10→18:38)
[2020-12-18 05:18] LABS: ANISOCYTOSIS 1+; BANDS%(MANUAL) 8 % (0-7); LYMPH#(MANUAL) 2.07 x10^3/uL (1-3.4); LYMPHS% (MANUAL) 11 % (22-44); METAMYELOCYTES# (MANUAL) 0.19 x10^3/uL (0-0); METAMYELOCYTES% (MANUAL) 1 % (0-1); MONOS#(MANUAL) 0.38 x10^3/uL (0.3-2.7); MONOS% (MANUAL) 2 % (2-9); MYELOCYTES# (MANUAL) 0.38 x10^3/uL (0-0); MYELOCYTES% (MANUAL) 2 % (0-0); POLYCHROMASIA 1+; SEG#(MANUAL) 14.29 x10^3/uL (1.8-6.8); SEGS% (MANUAL) 76 % (42-75)
[2020-12-18 05:19] LABS: <PLATELET ESTIMATE> INCREASED; <PLT MORPHOLOGY> NORMAL PLT MORPH; OVALOCYTES 1+
[2020-12-18] MEDS: ENOXAPARIN 40 MG/0.4 ML SQ SCH (06:22)
[2020-12-18] MEDS: LEVOTHYROXINE 125 MCG TABLET PO SCH (06:22)
[2020-12-18] MEDS: DEXAMETHASONE 4 MG/ML, 1ML IVPush SCH (10:31)
[2020-12-18] MEDS: POLYETHYLENE GLYCOL 17 GM PACKET PO SCH (10:31)
[2020-12-18] MEDS: SENNA 176 MG/5 ML ORAL SOL NG SCH (10:32)
[2020-12-18] MEDS: FENTANYL PF 2,500 MCG in SODIUM CHLORIDE 0.9% 200 ML IV PRN (10:33)
[2020-12-18] MEDS: PANTOPRAZOLE 40 MG IV IVPush SCH ×2 (11:57→23:59)
[2020-12-18] MEDS: DOXYCYCLINE 100 MG in DEXTROSE 5% 250 ML IV SCH ×2 (11:57→23:08)
[2020-12-18] MEDS: MELATONIN 5 MG TABLET PO SCH (21:32)
[2020-12-19] MEDS: MIDAZOLAM HCL 50 MG in SODIUM CHLORIDE 0.9% 40 ML IV PRN (00:39)
[2020-12-19] MEDS: MEROPENEM 1 GM in SODIUM CHLORIDE 0.9% 100 ML IV SCH ×3 (02:02→17:56)
[2020-12-19 04:14] LABS: MEAN CORPUSCULAR HEMOGLOBIN 31.4 pg (27.5-34.5); MEAN CORPUSCULAR HGB CONC 34.2 g/dL (33.2-36.2); MEAN PLATELET VOLUME 7.4 fL (7.4-10.4); PLATELET COUNT 370 x10^3/uL (130-400); RED BLOOD COUNT 3.52 x10^6/uL (4.38-5.82); RED CELL DISTRIBUTION WIDTH 13.4 % (9.4-14.8)
[2020-12-19 04:22] LABS: ANION GAP 2 mmol/L (5-15); CALCIUM 7.7 mg/dL (8.5-10.1); CHLORIDE 103 mmol/L (98-107); CREATININE 0.48 mg/dL (0.7-1.3)
[2020-12-19 04:56] LABS: BAND#(MANUAL) 0.72 x10^3/uL; BANDS%(MANUAL) 3 % (0-7); EOS#(MANUAL) 0.96 x10^3/uL (0.0-0.4); EOS% (MANUAL) 4 % (1-7); LYMPH#(MANUAL) 1.69 x10^3/uL (1-3.4); LYMPHS% (MANUAL) 7 % (22-44); METAMYELOCYTES# (MANUAL) 0.24 x10^3/uL (0-0); METAMYELOCYTES% (MANUAL) 1 % (0-1); MONOS#(MANUAL) 0.72 x10^3/uL (0.3-2.7); MONOS% (MANUAL) 3 % (2-9); MYELOCYTES# (MANUAL) 0.24 x10^3/uL (0-0); MYELOCYTES% (MANUAL) 1 % (0-0); REACTIVE LYMPHS # (MANUAL) 0.48 x10^3/uL (0-0); REACTIVE LYMPHS % (MANUAL) 2 % (0-0); SEG#(MANUAL) 19.04 x10^3/uL (1.8-6.8); SEGS% (MANUAL) 79 % (42-75)
[2020-12-19 04:57] LABS: <PLATELET ESTIMATE> ADEQUATE; <PLT MORPHOLOGY> NORMAL PLT MORPH; ANISOCYTOSIS 1+; OVALOCYTES 1+; POLYCHROMASIA 1+
[2020-12-19] MEDS ORDERED: MIDAZOLAM IN 0.9 % SOD.CHLORID 100 ML IV SCH (05:30)
[2020-12-19] MEDS: LEVOTHYROXINE 125 MCG TABLET PO SCH (05:45)
[2020-12-19] MEDS: ENOXAPARIN 40 MG/0.4 ML SQ SCH (05:46)
[2020-12-19] MEDS ORDERED: BISACODYL 10 MG SUPP PR PRN (09:00)
[2020-12-19] MEDS: POLYETHYLENE GLYCOL 17 GM PACKET PO SCH (11:01)
[2020-12-19] MEDS: SENNA 176 MG/5 ML ORAL SOL NG SCH (11:01)
[2020-12-19] MEDS: DEXAMETHASONE 4 MG/ML, 1ML IV SCH (11:02)
[2020-12-19] MEDS: PANTOPRAZOLE 40 MG IV IVPush SCH ×2 (11:52→21:06)
[2020-12-19] MEDS: FENTANYL PF 2,500 MCG in SODIUM CHLORIDE 0.9% 200 ML IV PRN ×2 (16:13)
[2020-12-19] MEDS: MELATONIN 5 MG TABLET PO SCH (21:07)
[2020-12-19] MEDS: MIDAZOLAM HCL 100 MG in SODIUM CHLORIDE 0.9% 80 ML IV SCH (21:07)
[2020-12-20] MEDS: MEROPENEM 1 GM in SODIUM CHLORIDE 0.9% 100 ML IV SCH ×3 (02:37→18:03)
[2020-12-20 04:29] LABS: MEAN CORPUSCULAR HEMOGLOBIN 30.6 pg (27.5-34.5); MEAN CORPUSCULAR HGB CONC 33.1 g/dL (33.2-36.2); MEAN PLATELET VOLUME 7.7 fL (7.4-10.4); PLATELET COUNT 380 x10^3/uL (130-400); RED BLOOD COUNT 3.69 x10^6/uL (4.38-5.82); RED CELL DISTRIBUTION WIDTH 13.9 % (9.4-14.8)
[2020-12-20 04:39] LABS: ANION GAP 4 mmol/L (5-15); CALCIUM 7.6 mg/dL (8.5-10.1); CHLORIDE 103 mmol/L (98-107); CREATININE 0.43 mg/dL (0.7-1.3); TRIGLYCERIDES 99 mg/dL (50-200)
[2020-12-20 04:59] LABS: ANISOCYTOSIS 1+; BAND#(MANUAL) 0.62 x10^3/uL; BANDS%(MANUAL) 3 % (0-7); EOS#(MANUAL) 0.62 x10^3/uL (0.0-0.4); EOS% (MANUAL) 3 % (1-7); LYMPH#(MANUAL) 1.25 x10^3/uL (1-3.4); LYMPHS% (MANUAL) 6 % (22-44); METAMYELOCYTES# (MANUAL) 0.21 x10^3/uL (0-0); METAMYELOCYTES% (MANUAL) 1 % (0-1); MONOS#(MANUAL) 0.21 x10^3/uL (0.3-2.7); MONOS% (MANUAL) 1 % (2-9); SEG#(MANUAL) 17.89 x10^3/uL (1.8-6.8); SEGS% (MANUAL) 86 % (42-75)
[2020-12-20 05:00] LABS: <PLATELET ESTIMATE> ADEQUATE; <PLT MORPHOLOGY> NORMAL PLT MORPH; OVALOCYTES 1+; POLYCHROMASIA 1+
[2020-12-20] MEDS: ENOXAPARIN 40 MG/0.4 ML SQ SCH (06:41)
[2020-12-20] MEDS: LEVOTHYROXINE 125 MCG TABLET PO SCH (06:41)
[2020-12-20] MEDS: MIDAZOLAM HCL 100 MG in SODIUM CHLORIDE 0.9% 80 ML IV SCH (07:43)
[2020-12-20] MEDS: FENTANYL PF 2,500 MCG in SODIUM CHLORIDE 0.9% 200 ML IV PRN (08:20)
[2020-12-20] MEDS: NOREPINEPHRINE 32 MG in SODIUM CHLORIDE 0.9% 218 ML IV PRN (09:12)
[2020-12-20] MEDS: SENNA 176 MG/5 ML ORAL SOL NG SCH (09:43)
[2020-12-20] MEDS: DEXAMETHASONE 4 MG/ML, 1ML IV SCH (09:43)
[2020-12-20] MEDS: POLYETHYLENE GLYCOL 17 GM PACKET PO SCH (09:44)
[2020-12-20] MEDS: PANTOPRAZOLE 40 MG IV IVPush SCH ×2 (12:42→20:59)
--- NOTE | 2020-12-20 15:01 | NUR ---
Vital AF: goal on propofol: 60 ml/hr, off propofol: 70 ml/hr Addendum: 12/20/20 at [address] Amended: Links added.
[2020-12-20] MEDS: MELATONIN 5 MG TABLET PO SCH (20:59)
[2020-12-21] MEDS: MEROPENEM 1 GM in SODIUM CHLORIDE 0.9% 100 ML IV SCH ×3 (02:15→17:41)
[2020-12-21] MEDS: ENOXAPARIN 40 MG/0.4 ML SQ SCH (02:15)
[2020-12-21] MEDS: FENTANYL PF 2,500 MCG in SODIUM CHLORIDE 0.9% 200 ML IV PRN (03:12)
[2020-12-21 03:52] LABS: MEAN CORPUSCULAR HGB CONC 33.8 g/dL (33.2-36.2); RED BLOOD COUNT 3.76 x10^6/uL (4.38-5.82)
[2020-12-21 03:53] LABS: MEAN PLATELET VOLUME 7.2 fL (7.4-10.4); PLATELET COUNT 368 x10^3/uL (130-400); RED CELL DISTRIBUTION WIDTH 13.8 % (9.4-14.8)
[2020-12-21 04:05] LABS: CALCIUM 7.9 mg/dL (8.5-10.1); CHLORIDE 104 mmol/L (98-107); CREATININE 0.45 mg/dL (0.7-1.3)
[2020-12-21 04:16] LABS: BAND#(MANUAL) 0.33 x10^3/uL; BANDS%(MANUAL) 2 % (0-7); EOS#(MANUAL) 0.16 x10^3/uL (0.0-0.4); EOS% (MANUAL) 1 % (1-7); LYMPH#(MANUAL) 2.28 x10^3/uL (1-3.4); LYMPHS% (MANUAL) 14 % (22-44); MONOS#(MANUAL) 1.14 x10^3/uL (0.3-2.7); MONOS% (MANUAL) 7 % (2-9); SEG#(MANUAL) 12.39 x10^3/uL (1.8-6.8); SEGS% (MANUAL) 76 % (42-75)
[2020-12-21 04:17] LABS: <PLATELET ESTIMATE> ADEQUATE; <PLT MORPHOLOGY> NORMAL PLT MORPH; OVALOCYTES 1+; POLYCHROMASIA 1+
[2020-12-21 04:18] LABS: ANION GAP 3 mmol/L (5-15)
[2020-12-21] MEDS: LEVOTHYROXINE 125 MCG TABLET PO SCH (06:09)
[2020-12-21] MEDS ORDERED: VECURONIUM 10 MG ONE (08:12)
[2020-12-21] MEDS ORDERED: CATHFLO-ALTEPLASE 2 MG/2 ML CATHFLUSH ONE (09:00)
[2020-12-21] MEDS: SENNA 176 MG/5 ML ORAL SOL NG SCH (10:19)
[2020-12-21] MEDS: PANTOPRAZOLE 40 MG IV IVPush SCH ×2 (10:20→21:08)
[2020-12-21] MEDS: POLYETHYLENE GLYCOL 17 GM PACKET PO SCH (10:20)
[2020-12-21] MEDS: DEXAMETHASONE 4 MG/ML, 1ML IV SCH (10:20)
[2020-12-21] MEDS: MIDAZOLAM HCL 100 MG in SODIUM CHLORIDE 0.9% 80 ML IV SCH (13:57)
[2020-12-21] MEDS: MELATONIN 5 MG TABLET PO SCH (21:00)
[2020-12-22] MEDS: MEROPENEM 1 GM in SODIUM CHLORIDE 0.9% 100 ML IV SCH ×3 (01:39→17:47)
[2020-12-22] MEDS: FENTANYL PF 2,500 MCG in SODIUM CHLORIDE 0.9% 200 ML IV PRN (01:39)
[2020-12-22 03:33] LABS: MEAN CORPUSCULAR HEMOGLOBIN 31.1 pg (27.5-34.5); MEAN CORPUSCULAR HGB CONC 33.9 g/dL (33.2-36.2); MEAN PLATELET VOLUME 7.4 fL (7.4-10.4); PLATELET COUNT 340 x10^3/uL (130-400); RED BLOOD COUNT 3.74 x10^6/uL (4.38-5.82); RED CELL DISTRIBUTION WIDTH 14.2 % (9.4-14.8)
[2020-12-22 03:43] LABS: ANION GAP 1 mmol/L (5-15); CHLORIDE 103 mmol/L (98-107); CREATININE 0.52 mg/dL (0.7-1.3)
[2020-12-22 03:52] LABS: D-DIMER 4.4 ug/mlFEU (0.00-0.52)
[2020-12-22 04:25] LABS: BAND#(MANUAL) 0.15 x10^3/uL; BANDS%(MANUAL) 1 % (0-7); BASOS#(MANUAL) 0.15 x10^3/uL (0-0.1); BASOS% (MANUAL) 1 % (0-1); EOS#(MANUAL) 0.91 x10^3/uL (0.0-0.4); EOS% (MANUAL) 6 % (1-7); LYMPH#(MANUAL) 2.87 x10^3/uL (1-3.4); LYMPHS% (MANUAL) 19 % (22-44); METAMYELOCYTES% (MANUAL) 2 % (0-1); MONOS#(MANUAL) 0.91 x10^3/uL (0.3-2.7); MONOS% (MANUAL) 6 % (2-9); SEG#(MANUAL) 9.82 x10^3/uL (1.8-6.8); SEGS% (MANUAL) 65 % (42-75)
[2020-12-22 04:26] LABS: <PLATELET ESTIMATE> ADEQUATE; <PLT MORPHOLOGY> NORMAL PLT MORPH; ANISOCYTOSIS 1+; OVALOCYTES 1+; POLYCHROMASIA 1+
[2020-12-22] MEDS: LEVOTHYROXINE 125 MCG TABLET PO SCH (05:27)
[2020-12-22] MEDS: ENOXAPARIN 40 MG/0.4 ML SQ SCH (05:28)
[2020-12-22] MEDS: SENNA 176 MG/5 ML ORAL SOL NG SCH (08:29)
[2020-12-22] MEDS: POLYETHYLENE GLYCOL 17 GM PACKET PO SCH (08:29)
[2020-12-22] MEDS: DEXAMETHASONE 4 MG/ML, 1ML IV SCH (09:20)
[2020-12-22] MEDS: PANTOPRAZOLE 40 MG IV IVPush SCH ×2 (13:07→19:22)
[2020-12-22] MEDS: MELATONIN 5 MG TABLET PO SCH (19:23)
[2020-12-23] MEDS: MEROPENEM 1 GM in SODIUM CHLORIDE 0.9% 100 ML IV SCH ×2 (02:58→11:13)
[2020-12-23] MEDS: ENOXAPARIN 40 MG/0.4 ML SQ SCH (04:33)
[2020-12-23 05:00] LABS: MEAN CORPUSCULAR HEMOGLOBIN 30.6 pg (27.5-34.5); MEAN CORPUSCULAR HGB CONC 33.6 g/dL (33.2-36.2); MEAN PLATELET VOLUME 7.4 fL (7.4-10.4); PLATELET COUNT 323 x10^3/uL (130-400); RED BLOOD COUNT 4.01 x10^6/uL (4.38-5.82); RED CELL DISTRIBUTION WIDTH 14.3 % (9.4-14.8)
[2020-12-23 05:09] LABS: ANION GAP 3 mmol/L (5-15); CHLORIDE 105 mmol/L (98-107)
[2020-12-23 05:10] LABS: CREATININE 0.59 mg/dL (0.7-1.3)
[2020-12-23] MEDS: LEVOTHYROXINE 125 MCG TABLET PO SCH (05:11)
[2020-12-23 05:52] LABS: <PLATELET ESTIMATE> ADEQUATE; <PLT MORPHOLOGY> NORMAL PLT MORPH; ANISOCYTOSIS 1+; EOS#(MANUAL) 0.59 x10^3/uL (0.0-0.4); EOS% (MANUAL) 4 % (1-7); LYMPH#(MANUAL) 2.81 x10^3/uL (1-3.4); LYMPHS% (MANUAL) 19 % (22-44); METAMYELOCYTES# (MANUAL) 0.15 x10^3/uL (0-0); METAMYELOCYTES% (MANUAL) 1 % (0-1); MONOS#(MANUAL) 0.59 x10^3/uL (0.3-2.7); MONOS% (MANUAL) 4 % (2-9); OVALOCYTES 1+; POLYCHROMASIA 1+; SEG#(MANUAL) 10.66 x10^3/uL (1.8-6.8); SEGS% (MANUAL) 72 % (42-75)
[2020-12-23] MEDS: SENNA 176 MG/5 ML ORAL SOL NG SCH (08:29)
[2020-12-23] MEDS: POLYETHYLENE GLYCOL 17 GM PACKET PO SCH (08:29)
[2020-12-23] MEDS: PANTOPRAZOLE 40 MG IV IVPush SCH ×2 (11:13→23:40)
[2020-12-23 20:12] VITALS: BP 113/72
[2020-12-23] MEDS: MELATONIN 5 MG TABLET PO SCH (20:14)
[2020-12-24 02:37] VITALS: BP 112/74
[2020-12-24] MEDS: ENOXAPARIN 40 MG/0.4 ML SQ SCH (05:44)
[2020-12-24] MEDS: LEVOTHYROXINE 125 MCG TABLET PO SCH (05:44)
[2020-12-24] MEDS: POLYETHYLENE GLYCOL 17 GM PACKET PO SCH (08:01)
[2020-12-24 08:05] VITALS: BP 120/72
[2020-12-24 09:03] LABS: BASOPHILS % (AUTO) 1 % (0-1); EOSINOPHILS % (AUTO) 7 % (1-7); LYMPHOCYTES % (AUTO) 14 % (22-44); MEAN CORPUSCULAR HEMOGLOBIN 31.5 pg (27.5-34.5); MEAN CORPUSCULAR HGB CONC 34.4 g/dL (33.2-36.2); MEAN PLATELET VOLUME 7.5 fL (7.4-10.4); MONOCYTES % (AUTO) 8 % (2-9); NEUTROPHILS % (AUTO) 70 % (42-75); PLATELET COUNT 338 x10^3/uL (130-400); RED CELL DISTRIBUTION WIDTH 14.7 % (9.4-14.8)
[2020-12-24 09:10] LABS: ALANINE AMINOTRANSFERASE 26 U/L (12-78); ALBUMIN 2.3 g/dL (3.4-5.0); ANION GAP 8 mmol/L (5-15); CALCIUM 9.1 mg/dL (8.5-10.1); CHLORIDE 109 mmol/L (98-107); CREATININE 0.68 mg/dL (0.7-1.3)
[2020-12-24 09:12] LABS: ALKALINE PHOSPHATASE 66 U/L (45-117); BILIRUBIN,TOTAL 0.7 mg/dL (0.2-1.0); TOTAL PROTEIN 6.8 g/dL (6.4-8.2)
[2020-12-24 11:58] VITALS: BP 133/86
[2020-12-24] MEDS: PANTOPRAZOLE 40 MG IV IVPush SCH ×2 (12:09→23:52)
[2020-12-24 14:45] VITALS: BP 132/84
[2020-12-24 19:09] VITALS: BP 117/74
[2020-12-24] MEDS: MELATONIN 5 MG TABLET PO SCH (20:42)
[2020-12-25 00:59] VITALS: BP 104/70
[2020-12-25] MEDS: ACETAMINOPHEN 325 MG TABLET PO PRN ×3 (01:42→14:16)
[2020-12-25] MEDS: LEVOTHYROXINE 125 MCG TABLET PO SCH (06:15)
[2020-12-25] MEDS: ENOXAPARIN 40 MG/0.4 ML SQ SCH (06:16)
[2020-12-25 08:22] VITALS: BP 122/78
[2020-12-25] MEDS: POLYETHYLENE GLYCOL 17 GM PACKET PO SCH (09:09)
[2020-12-25 10:34] LABS: FREE T4 (FREE THYROXINE) 0.91 ng/dL (0.76-1.46)
[2020-12-25 12:53] VITALS: BP 100/66
[2020-12-25] MEDS: PANTOPRAZOLE 40 MG IV IVPush SCH (12:57)
== END 2020-12-25 18:37 | DRG 870 ==
LOC: ED 03:07 → EDIP 03:11 → 5SO 03:17 → ICU 12-06 16:50 → 3N 12-23 14:19
PROVIDERS: ADMIT Family Medicine; ATTEND Internal Medicine
PROC: 5A0935A Assistance with Respiratory Ventilation, Less than 24 Consecutive Hours, High Flow/Velocity Cannula (ICD-10-PCS; 2020-12-02)
PROC: XW033E5 Introduction of Remdesivir Anti-infective into Peripheral Vein, Percutaneous Approach, New Technology Group 5 (ICD-10-PCS; 2020-12-02)
PROC: 5A0935A Assistance with Respiratory Ventilation, Less than 24 Consecutive Hours, High Flow/Velocity Cannula (ICD-10-PCS; 2020-12-10)
PROC: 5A1955Z Respiratory Ventilation, Greater than 96 Consecutive Hours (ICD-10-PCS; principal; 2020-12-11)
PROC: 0BH17EZ Insertion of Endotracheal Airway into Trachea, Via Natural or Artificial Opening (ICD-10-PCS; 2020-12-11)
PROC: 02HV33Z Insertion of Infusion Device into Superior Vena Cava, Percutaneous Approach (ICD-10-PCS; 2020-12-11)
PROC: B548ZZA Ultrasonography of Superior Vena Cava, Guidance (ICD-10-PCS; 2020-12-11)
PROC: 0T9B70Z Drainage of Bladder with Drainage Device, Via Natural or Artificial Opening (ICD-10-PCS; 2020-12-11)
PROC: 0D9670Z Drainage of Stomach with Drainage Device, Via Natural or Artificial Opening (ICD-10-PCS; 2020-12-11)
PROC: 0W9930Z Drainage of Right Pleural Cavity with Drainage Device, Percutaneous Approach (ICD-10-PCS; 2020-12-13)
DX: A41.89 Other specified sepsis (principal); U07.1 COVID-19; J96.01 Acute respiratory failure with hypoxia; J12.82 Pneumonia due to coronavirus disease 2019; J44.1 Chronic obstructive pulmonary disease with (acute) exacerbation; E87.1 Hypo-osmolality and hyponatremia; N17.9 Acute kidney failure, unspecified; E87.2 Acidosis; I31.9 Disease of pericardium, unspecified; I69.351 Hemiplegia and hemiparesis following cerebral infarction affecting right dominant side; J44.0 Chronic obstructive pulmonary disease with (acute) lower respiratory infection; J93.83 Other pneumothorax; Z99.11 Dependence on respirator [ventilator] status; D63.8 Anemia in other chronic diseases classified elsewhere; D72.823 Leukemoid reaction; E03.9 Hypothyroidism, unspecified; E78.5 Hyperlipidemia, unspecified; E83.39 Other disorders of phosphorus metabolism; E83.42 Hypomagnesemia; E87.5 Hyperkalemia; E88.09 Other disorders of plasma-protein metabolism, not elsewhere classified; G89.29 Other chronic pain; I10 Essential (primary) hypertension; I25.10 Atherosclerotic heart disease of native coronary artery without angina pectoris; N14.1 Nephropathy induced by other drugs, medicaments and biological substances; T50.8X5A Adverse effect of diagnostic agents, initial encounter; I25.2 Old myocardial infarction; Y92.89 Other specified places as the place of occurrence of the external cause; Z82.5 Family history of asthma and other chronic lower respiratory diseases; Z83.3 Family history of diabetes mellitus; Z87.891 Personal history of nicotine dependence; Z88.8 Allergy status to other drugs, medicaments and biological substances; Z88.0 Allergy status to penicillin; Z88.5 Allergy status to narcotic agent
CPT/HCPCS: 32557; 36415; 36573; 36600; 71045; 71275; 74018; 74176; 76770; 80048; 80053; 81001; 81003; 82306; 82330; 82436; 82570; 82728; 82803; 82962; 83540; 83550; 83615; 83735; 83880; 83935; 84100; 84133; 84145; 84156; 84300; 84439; 84443; 84478; 84481; 84484; 84550; 85014; 85018; 85025; 85045; 85379; 85384; 85610; 85651; 85730; 86140; 87040; 87070; 87081; 87086; 87205; 93005; 93970; 94002; 94003; 96374; 96375; 99291; G0378; J0696; J1100; J1650; J1940; J2185; J2250; J2405; J2704; J2997; J3010; J7060; Q9967; C1729; C1751; C1769; C9113; J7030; J7050